=== PATIENT | male | born 1955 | race Caucasian/White ===

== ENCOUNTER 2017-01-19 08:25 | Emergency (ER) | payer OTHER, BC ==
[2017-01-19 08:34] VITALS: BP 124/80; PULSE 72; TEMP 98.3; BMI 31.6
[2017-01-19] MEDS ORDERED: TETANUS AND DIPHTHERIA TOXOID 0.5 ML DISP.SYRIN IM ONE (09:02)
[2017-01-19] MEDS ORDERED: CEPHALEXIN MONOHYDRATE 500 MG CAPSULE (UD) PO ONE (09:16)
--- NOTE | 2017-01-19 09:20 | PDOC ---
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 Patient is unsure whether or not he is up-to-date with tetanus will update today. Patient denies any numbness of right hand or fingers. Occurred: reports: yesterday (at 7 pm ) Severity: reports: mild Pain Location: reports: upper extremity (laceration base of 2nd metacarpal palmar) Method of Injury: Yes: other (cut by metal pipe at work ) Modifying Factors: improves with: None Loss of Consciousness: no loss of consciousness Associated Symptoms (Fall): denies symptoms Past History - Past Medical History Allergies/Adverse Reactions: Allergies Allergy/AdvReac Type Severity Reaction Status Date / Time No Known Allergies Allergy Verified 01/19/17 08:34 Home Medications: Ambulatory Orders Jentadueto 2.5 mg-500 mg Tab 500 tab PO BID 10/16/14 Candesartan Cilexetil [Atacand -] 0 mg PO DAILY 11/02/15 Glimepiride [Amaryl -] 0 mg PO DAILY 11/02/15 [place]-3 Acid Ethyl Esters [Lovaza -] 0 mg PO TID 11/02/15 Antipyrine-Benzocaine Ear Drop [Auralgan -] 5 drop AD TID #1 bottle 11/03/15 Cephalexin Monohydrate [Keflex -] 500 mg PO Q8H #20 capsule MDD 3 01/19/17 Diabetes: Yes (type 2) HTN: Yes Suicide Attempt (Hx): No - Immunization History Immunization Up to Date: Yes - Psycho/Social/Smoking Cessation Hx Anxiety: No Suicidal Ideation: No Smoking Status: Yes Smoking History: Current every day smoker Have you smoked in the past 12 months: No Number of Cigarettes Smoked Daily: 20 Information on smoking cessation initiated: No Hx Alcohol Use: No Drug/Substance Use Hx: No Substance Use Type: None Review of Systems - Review of Systems Able to Perform ROS?: Yes Constitutional: No: Symptoms Reported HEENTM: No: Symptoms Reported Respiratory: No: Symptoms reported Cardiac (ROS): No: Symptoms Reported ABD/GI: No: Symptoms Reported : No: Symptoms Reported Musculoskeletal: No: Symptoms Reported Integumentary: Yes: Other (laceration at base of trt. 2nd MCP jt palmar) Neurological: No: Symptoms reported *Physical Exam - Vital Signs Last Vital Signs Temp Pulse Resp BP Pulse Ox 98.3 F 72 18 124/80 98 01/19/17 08:27 01/19/17 08:27 01/19/17 08:27 01/19/17 08:27 01/19/17 08:27 - Physical Exam General Appearance: Yes: Appropriately Dressed Comments:: 01/19/17 09:17 radial pulse 4 + rt. Extremity: positive: Normal Capillary Refill, Normal Inspection (except for laceration at base of 2nd mcp jt palmar aspect rt), Normal Range of Motion (all digits rt. hand and 2nd finger rt. at pip, dip, mcp jt ) Integumentary: positive: Other (laceration rt. palmar 2nd base of 2nd mcp jt.approx 2 cm x 0.25 cm linear superficial ) Neurologic: positive: Normal Response, Motor Strength 5/5 (rt.index finger), Respond to painful stimul. negative: Numbness, Sensory Deficit (rt. index finger, rt. hand ) Procedures - Consent Consent obtained: From Patient - Laceration/Wound Repair Right Hand Wound Length: to 2.5 cm Wound Explored: clean Wound's Depth, Shape: superficial, linear Irrigated w/ Saline: Yes Betadine Prep: Yes Anesthesia: 1% Lidocaine Amount of Anesthetic (ccs): 2 Wound Repaired With: Sutures Suture Size/Type: 4:0 Number of Sutures: 2 (interrupted) Sterile Dressing Applied: No (bandaid ) Splint Applied: No Medical Decision Making - Medical Decision Making 01/19/17 12:07 Patient is a 61-year-old male with history of hypertension and insulin- dependent diabetic here today due to cutting his palm at the base of his second finger on a metal pipe last night approximately 7 PM 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 Patient is unsure whether or not he is up-to- date with tetanus will update today. Patient denies any numbness of right hand or fingers. Right hand laceration at base of rt. index finger palmar aspect PLAN: TDAP 0.5 ml IM keflex 500 mg po now than every 8 hrs for 7 days 2 interrupted sutures applied rt. palmar hand base of index *DC/Admit/Observation/Transfer Diagnosis at time of Disposition: Laceration of right palm Qualifiers: Encounter type: initial encounter Qualified Code(s): S61.411A - Laceration without foreign body of right hand, initial encounter - Discharge Dispostion Disposition: HOME Condition at time of disposition: Stable - Prescriptions Prescriptions: Cephalexin Monohydrate [Keflex -] 500 mg PO Q8H #20 capsule MDD 3 - Referrals Referrals: Janis Felix MD [Primary Care Provider] - - Patient Instructions Additional Instructions: Wound daily with antibacterial soap and water pat dry and apply a tiny amount of bacitracin ointment cover with Band-Aid when out of the home let air out at night Today your tetanus diphtheria and pertussis vaccine was updated Return here in 10-14 days for suture removal or sooner if any redness around wound or any discharge from wound Patient voiced understanding of discharge instructions and all questions were answered - Post Discharge Activity Work/School Note: Back to Work
[2017-01-19] MEDS ORDERED: CEPHALEXIN MONOHYDRATE 500 MG CAPSULE (UD) ONE (09:25)
== END 2017-01-19 09:27 | disposition home or self-care (01) ==
LOC: JERFT 08:25
PROC: 0HQFXZZ Repair Right Hand Skin, External Approach (ICD-10-PCS; principal; 2017-01-19)
DX: S61.411A Laceration without foreign body of right hand, initial encounter (principal); W26.8XXA Contact with other sharp object(s), not elsewhere classified, initial encounter; Y93.89 Activity, other specified; Y92.9 Unspecified place or not applicable; Y99.0 Civilian activity done for income or pay; F17.210 Nicotine dependence, cigarettes, uncomplicated; I10 Essential (primary) hypertension; E11.9 Type 2 diabetes mellitus without complications
CPT/HCPCS: 99281-25

== ENCOUNTER 2017-02-24 08:04 | Emergency (ER) | payer OTHER, BC ==
[2017-02-24 08:09] VITALS: BP 131/69; PULSE 67; TEMP 98.2; BMI 31.7
--- NOTE | 2017-02-24 08:56 | PDOC ---
History of Present Illness - General Chief Complaint: Redness To Affected Area Stated Complaint: RT FINGER INFECTION Time Seen by Provider: 02/24/17 08:25 History Source: Patient Exam Limitations: No Limitations - History of Present Illness Initial Comments: 02/24/17 08:32 concerned about 2nd finger right hand status post laceration repair approximately one month ago. States woke up yesterday and noticed some tenderness distal to the injury that is well-healed. States today had worsened redness and tenderness at the PIP of same affected hand. Denies fever, denies purulent drainage or any foreign bodies. States had uneventful healing of the wound. Has had no recent trauma to same. 02/24/17 09:04 Timing/Duration: unsure Past History - Travel Traveled outside of the country in the last 30 days: No Close contact w/someone who was outside of country & ill: No - Past Medical History Allergies/Adverse Reactions: Allergies Allergy/AdvReac Type Severity Reaction Status Date / Time No Known Allergies Allergy Verified 02/24/17 08:09 Home Medications: Ambulatory Orders Jentadueto 2.5 mg-500 mg Tab 500 tab PO BID 10/16/14 Candesartan Cilexetil [Atacand -] 0 mg PO DAILY 11/02/15 Glimepiride [Amaryl -] 0 mg PO DAILY 11/02/15 [place]-3 Acid Ethyl Esters [Lovaza -] 0 mg PO TID 11/02/15 Antipyrine-Benzocaine Ear Drop [Auralgan -] 5 drop AD TID #1 bottle 11/03/15 Cephalexin Monohydrate [Keflex -] 500 mg PO Q8H #20 capsule MDD 3 01/19/17 Cephalexin Monohydrate [Keflex -] 500 mg PO Q8H #21 capsule 02/24/17 Diabetes: Yes (type 2) HTN: Yes Suicide Attempt (Hx): No - Immunization History Immunization Up to Date: Yes - Psycho/Social/Smoking Cessation Hx Anxiety: No Suicidal Ideation: No Smoking Status: Yes Smoking History: Current every day smoker Have you smoked in the past 12 months: Yes Number of Cigarettes Smoked Daily: 20 Information on smoking cessation initiated: Yes 'Breaking Loose' booklet given: 02/24/17 Hx Alcohol Use: No Drug/Substance Use Hx: No Substance Use Type: None Review of Systems - Review of Systems Able to Perform ROS?: Yes Is the patient limited Vietnamese proficient: Yes Constitutional: Yes: See HPI. No: Symptoms Reported, Chills, Fever HEENTM: No: Symptoms Reported Respiratory: No: Symptoms reported Musculoskeletal: Yes: Symptoms Reported, See HPI, Joint Pain (right second finger) Integumentary: Yes: See HPI, Erythema, Lesions *Physical Exam - Vital Signs Last Vital Signs Temp Pulse Resp BP Pulse Ox 98.2 F 67 20 131/69 99 02/24/17 08:05 02/24/17 08:05 02/24/17 08:05 02/24/17 08:05 02/24/17 08:05 - Physical Exam General Appearance: Yes: Nourished, Appropriately Dressed, Apparent Distress, Mild Distress HEENT: positive: [place]AMP[place], Normal ENT Inspection, TMs Normal, Pharynx Normal Extremity: positive: Normal Capillary Refill, Normal Inspection. negative: Normal Range of Motion Integumentary: positive: Erythema, Swelling (and tenderness to the ulnar aspect of right index finger at PIP and extending into second phalanx. Range of motion is somewhat limited secondary to pain with extreme flexion and grasp/fist. Neurovascular intact distal to tender area. Well-healed scab scar at MCP webspace of second and third digits of right palm. 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 We'll treat with Keflex, and have follow up with hand specialist to rule out any foreign body or further infection related to wound this week. *DC/Admit/Observation/Transfer Diagnosis at time of Disposition: Cellulitis, finger Qualifiers: Laterality: right Qualified Code(s): L03.011 - Cellulitis of right finger - Discharge Dispostion Disposition: HOME Condition at time of disposition: Stable Admit: No - Referrals Referrals: Janis Felix MD [Primary Care Provider] - Jaxon Hernández MD [Staff Physician] - - Patient Instructions Printed Discharge Instructions: DI for Cellulitis -- Adult Additional Instructions: Rest, keep area elevated. Avoid strenuous activity or exercise until wound is healed Use hot soaks to area to bring more blood to the surface and encourage drainage Allow water from shower to wash area thoroughly for 2-3 minutes, and pat dry upon exit of shower and replace dressing. May use Tylenol or Motrin for mild pain relief Continue all medications as prescribed Followup with private physician in 2-3 days for wound check Return to emergency Department for worsening swelling, pain, redness, fevers as needed - Post Discharge Activity Work/School Note: Back to Work
[2017-02-24] MEDS ORDERED: CEPHALEXIN MONOHYDRATE 500 MG CAPSULE (UD) PO ONE (09:04)
[2017-02-24] MEDS ORDERED: CEPHALEXIN MONOHYDRATE 500 MG CAPSULE (UD) ONE (09:05)
== END 2017-02-24 09:15 | disposition home or self-care (01) ==
LOC: JERFT 08:04
DX: L03.011 Cellulitis of right finger (principal); I10 Essential (primary) hypertension; E11.9 Type 2 diabetes mellitus without complications; Z79.84 Long term (current) use of oral hypoglycemic drugs; F17.210 Nicotine dependence, cigarettes, uncomplicated
CPT/HCPCS: 99281-25

== ENCOUNTER 2017-12-27 07:49 | Emergency (ER) | payer OTHER, BC ==
[2017-12-27 08:11] VITALS: BP 142/83; PULSE 66; TEMP 98.8; BMI 31.9
[2017-12-27] MEDS ORDERED: CLINDAMYCIN 900 MG PREMIX IVPB 900 MG/50 ML BAG IVPB ONE ×2 (09:24→09:38)
--- NOTE | 2017-12-27 09:31 | PDOC ---
History of Present Illness - General Chief Complaint: Abscess Boil Stated Complaint: INJURY TO FINGER Time Seen by Provider: 12/27/17 08:46 History Source: Patient Exam Limitations: No Limitations - History of Present Illness Initial Comments: 12/27/17 09:31 62-year-old male who is right hand dominant presents to the ER complaining of pain and swelling to the base of the right index finger. 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 Patient noticed some swelling and redness to the medial base of the proximal phalanx of the second digit last evening area patient denies fever, chills, extremity numbness or tingling sensation. Patient denies any drainage but states there is some pain to that area. Last tetanus approximately one year ago. Past History - Past Medical History Allergies/Adverse Reactions: Allergies Allergy/AdvReac Type Severity Reaction Status Date / Time No Known Allergies Allergy Verified 12/27/17 08:08 Home Medications: Ambulatory Orders Jentadueto 2.5 mg-500 mg Tab 500 tab PO BID 10/16/14 Candesartan Cilexetil [Atacand -] 0 mg PO DAILY 11/02/15 Glimepiride [Amaryl -] 0 mg PO DAILY 11/02/15 [place]-3 Acid Ethyl Esters [Lovaza -] 0 mg PO TID 11/02/15 Cephalexin Monohydrate [Keflex -] 500 mg PO BID #14 capsule 12/27/17 COPD: No Diabetes: Yes (type 2) HTN: Yes - Immunization History Immunization Up to Date: Yes - Suicide/Smoking/Psychosocial Hx Smoking Status: Yes Smoking History: Current every day smoker Have you smoked in the past 12 months: Yes Number of Cigarettes Smoked Daily: 20 Information on smoking cessation initiated: No 'Breaking Loose' booklet given: 02/24/17 Hx Alcohol Use: No Drug/Substance Use Hx: No Substance Use Type: None Review of Systems - Review of Systems Able to Perform ROS?: Yes Comments:: 12/27/17 14:44 CONSTITUTIONAL: Absent: fever, chills, diaphoresis, generalized weakness, malaise, loss of appetite MUSCULOSKELETAL: right 2nd digit: +metallic foreign body to the medial aspect of the right second proximal phalanx with swelling and redness Absent: myalgia, arthralgia, joint swelling SKIN: Absent: rash, itching, pallor Is the patient limited Faroese proficient: No *Physical Exam - Vital Signs Last Vital Signs Temp Pulse Resp BP Pulse Ox 98.8 F 66 17 142/83 95 12/27/17 08:08 12/27/17 08:08 12/27/17 08:08 12/27/17 08:08 12/27/17 08:08 - Physical Exam Comments: 12/27/17 14:45 GENERAL: Well developed, well nourished. Awake and alert. No acute distress. MUSCULOSKELETAL ++metallic foreign body to the medial aspect of the right second proximal phalanx with swelling and redness Normal range of motion at all joints. No bony deformities or tenderness. No CVA tenderness. EXTREMITIES: No cyanosis. No clubbing. No edema. No calf tenderness. SKIN: Warm and dry. Normal capillary refill. No rashes. No jaundice. Moderate Sedation - Procedure Monitoring Vital Signs: Vital Signs Temp Pulse Resp BP Pulse Ox 98.8 F 66 17 142/83 95 12/27/17 08:08 12/27/17 08:08 12/27/17 08:08 12/27/17 08:08 12/27/17 08:08 ED Treatment Course - RADIOLOGY Radiology Studies Ordered: Category Date Time Status FINGER(S) RIGHT [RAD] Stat Radiology 12/27/17 09:11 Completed Radiograph Interpretation: 12/27/17 14:46 Xray right 2nd digit FB (2) noted to the base of the 2nd digit Xray post removal of FB by Ben KITCHEN (1) retained FB to volar prox 2nd phalanx *DC/Admit/Observation/Transfer Diagnosis at time of Disposition: Removal of foreign body - Discharge Dispostion Disposition: HOME Condition at time of disposition: Stable - Prescriptions Prescriptions: Cephalexin Monohydrate [Keflex -] 500 mg PO BID #14 capsule - Referrals Referrals: Anson Fleming MD [Staff Physician] - Janis Felix MD [Primary Care Provider] - - Patient Instructions - Post Discharge Activity Progress Note - Progress Note Progress Note: 1009hrs: Ben KITCHEN from Dr. Fleming's office at bedside seeing pt 1042hrs: As per Ben Young; pt can be d/c on Kelfex (superficial FB removed)
--- NOTE | 2017-12-27 11:45 | CON.ORTH ---
Consult Reason for Consultation:: right index FB - Past Medical History Cardio/Vascular: Yes: HTN, Hyperlipdemia. No: AFIB, Aneurysm, Aortic Insufficiency, Aortic Stenosis, CAD, CHF, Deep Vein Thrombosis, NE, Mitral Insufficiency, Mitral Stenosis, Murmur, Pulmonary Hypertension, Other Endocrine: Yes: Diabetes Mellitus. No: Lookout's Disease, Darrell's Disease, Diabetes Insipidus, Hyperparathyroidism, Hyperthyroidism, Hypothyroidism, Osteopenia, SIADH, Other - Alcohol/Substance Use Hx Alcohol Use: No - Smoking History Smoking history: Current every day smoker Have you smoked in the past 12 months: Yes Aproximately how many cigarettes per day: 20 Home Medications - Allergies Allergies/Adverse Reactions: Allergies Allergy/AdvReac Type Severity Reaction Status Date / Time No Known Allergies Allergy Verified 12/27/17 08:08 - Home Medications Home Medications: Ambulatory Orders Jentadueto 2.5 mg-500 mg Tab 500 tab PO BID 10/16/14 Candesartan Cilexetil [Atacand -] 0 mg PO DAILY 11/02/15 Glimepiride [Amaryl -] 0 mg PO DAILY 11/02/15 [place]-3 Acid Ethyl Esters [Lovaza -] 0 mg PO TID 11/02/15 Cephalexin Monohydrate [Keflex -] 500 mg PO BID #14 capsule 12/27/17 Physical Exam for Ortho Vital Signs: Vital Signs Temperature 98.8 F 12/27/17 08:08 Pulse Rate 66 12/27/17 08:08 Respiratory Rate 17 12/27/17 08:08 Blood Pressure 142/83 12/27/17 08:08 O2 Sat by Pulse Oximetry (%) 95 12/27/17 08:08 - Upper Extremity Hand: Yes: Right, Assymetrical, Erythema, Pain, Swelling, Tenderness, Other ( small ulceration/FB on ulnas aspect of right index finger, some erythema, no drainage or pus, able to flex and extend MP and PIP joints, nvi) Imaging - Results X-ray: Report Reviewed, Image Reviewed Assessment/Plan 62 yo left-hand dominant male with PMHx of HTN and DM. Pt is a smoker. H/o inury to finger one year ago where he suffered a laceration while at work to his right index finger. Recently finger has become more swollen and red and presents to ED for evaluation. a/p right index foreign body After consent obtained, time-out performed, area was prepped in a sterile fashion, bedside I&D was done, superficial piece of metal was removed for wound , area was irrigated with betadine, and bandaid was applied. Procedure was tolerated well Pt to be d/c'd on Keflex 500 mg BID for 7 days Clean area with peroxide daily Keep area covered will f/u in the office later this week for wound check d/w Dr. Hernández
== END 2017-12-27 11:07 | disposition home or self-care (01) ==
LOC: JERFT 07:49
PROC: 0JCJ0ZZ Extirpation of Matter from Right Hand Subcutaneous Tissue and Fascia, Open Approach (ICD-10-PCS; principal; 2017-12-27)
DX: Z18.10 Retained metal fragments, unspecified (principal); S60.450A Superficial foreign body of right index finger, initial encounter; X58.XXXA Exposure to other specified factors, initial encounter; Y93.89 Activity, other specified; Y92.69 Other specified industrial and construction area as the place of occurrence of the external cause; Y99.0 Civilian activity done for income or pay
CPT/HCPCS: 73140-TC-RT-FY; 99283-25

== ENCOUNTER 2018-04-19 08:09 | Emergency (ER) | payer OTHER, BC ==
[2018-04-19 08:37] VITALS: BP 156/77; PULSE 62; TEMP 98.7; BMI 31.7
--- NOTE | 2018-04-19 08:52 | PDOC ---
History of Present Illness - General Chief Complaint: Eye Problem Stated Complaint: RT EYE SWELLING, DRAINAGE Time Seen by Provider: 04/19/18 08:17 - History of Present Illness Initial Comments: 04/19/18 08:39 62 years old hx of HTN, DM, p/w 1 week hx of eyelid swelling. Patient presents with 6 day history of progressively worsening lower eyelid swelling now extending to the cheekbone. No fever no chills patient has history of similar has tried warm compresses at home with no improvement of symptoms. Symptoms are persistent constant gradually worsening moderate in severity there is no pain with eye movement and no pain within the eye. Past History - Past Medical History Allergies/Adverse Reactions: Allergies Allergy/AdvReac Type Severity Reaction Status Date / Time No Known Allergies Allergy Verified 04/19/18 08:10 Home Medications: Ambulatory Orders Candesartan Cilexetil [Atacand -] 32 mg PO DAILY 11/02/15 Glimepiride [Amaryl -] 4 mg PO DAILY 11/02/15 [place]-3 Acid Ethyl Esters [Lovaza -] 1 tab PO TID 11/02/15 Clindamycin [Cleocin -] 300 mg PO TID #21 capsule 04/19/18 Insulin Pen 16 units SQ BID 04/19/18 Polymyxin B Sulf/Trimethoprim [Polymyxin B-Tmp Eye Drops] 10 ml OP QID #1 bottle 04/19/18 COPD: No Diabetes: Yes (type 2) HTN: Yes - Immunization History Immunization Up to Date: Yes - Suicide/Smoking/Psychosocial Hx Smoking Status: Yes Smoking History: Current every day smoker Have you smoked in the past 12 months: Yes Number of Cigarettes Smoked Daily: 20 Information on smoking cessation initiated: Yes 'Breaking Loose' booklet given: 02/24/17 Hx Alcohol Use: No Drug/Substance Use Hx: No Substance Use Type: None Review of Systems - Review of Systems Comments:: 04/19/18 08:57 ROS: A complete review of 10 out of 10 review of systems is taken and is negative apart from what is previously mentioned below and in the HPI. *Physical Exam - Vital Signs Last Vital Signs Temp Pulse Resp BP Pulse Ox 98.7 F 62 20 156/77 99 04/19/18 08:10 04/19/18 08:10 04/19/18 08:10 04/19/18 08:10 04/19/18 08:10 - Physical Exam Comments: 04/19/18 08:58 Vitals: Triage Vital signs reviewed General Appearance: no acute distress, well nourished well developed, Head: Atraumatic, Eyes: Pupils equal reactive round, extraocular movement intact, no pain with extraocular movements, tenderness palpation to the lower right eyelid. VA: OD : 20/40, OS: 20/25 Neck: Supple;No Nucal rigidity Cardiac: Regular rate and rhythym, no murmurs, no rubs, no gallops, Lungs: Clear to auscultation bilateral, good air movement bilaterally, Extremities: Full range of motion to all extremities, no cyanosis, clubbing, or edema Skin: Swelling and redness to right lower eyelid extending from the nasal lacrimal area laterally to cheekbone Psych: normal mood, normal affect 04/19/18 09:00 Medical Decision Making - Medical Decision Making 04/19/18 09:00 History examination consistent with likely stye that has progressed to a blepharitis versus mild preseptal cellulitis. No pain with extraocular movements. Given this presentation we'll start patient on clindamycin given that he is diabetic by mouth as well as Polytrim eyedrops Patient provided with ophthalmology follow-up as well as very strict orbital cellulitis return instructions. Findings, the need for follow-up, strict return instructions discussed patient. *DC/Admit/Observation/Transfer Diagnosis at time of Disposition: Preseptal cellulitis - Discharge Dispostion Decision to Admit order: No - Prescriptions Prescriptions: Clindamycin [Cleocin -] 300 mg PO TID #21 capsule Polymyxin B Sulf/Trimethoprim [Polymyxin B-Tmp Eye Drops] 10 ml OP QID #1 bottle - Referrals Referrals: Himanshu Gross MD [Non Staff, Medical] - - Patient Instructions Printed Discharge Instructions: Orbital Cellulitis Additional Instructions: Take antibiotic drops as prescribed. Take antibody pills as prescribed. Apply warm compresses to lower eyelid 20 minutes on 20 minutes off. Follow-up with Dr. Gross ophthalmology within 2-3 days. Return to the emergency department immediately for any severe headache change in vision pain with eye movement fevers or for any concerns. Follow-up with your primary care provider within 1 week. - Post Discharge Activity
== END 2018-04-19 09:09 | disposition home or self-care (01) ==
LOC: FER 08:09
DX: L03.213 Periorbital cellulitis (principal); F17.210 Nicotine dependence, cigarettes, uncomplicated; I10 Essential (primary) hypertension; E11.9 Type 2 diabetes mellitus without complications
CPT/HCPCS: 99282-25

== ENCOUNTER 2018-07-27 09:04 | Emergency (ER) | payer OTHER, BC ==
--- NOTE | 2018-07-27 09:17 | PDOC ---
History of Present Illness - General Chief Complaint: Injury Stated Complaint: RT ANKLE INJURY Time Seen by Provider: 07/27/18 09:17 - History of Present Illness Initial Comments: 07/27/18 09:17 Chief complaint: Pain and swelling right ankle History of present illness: "Twisted it" yesterday at work. Progressive swelling. Ambulatory but limping, pain with weightbearing and movement. Multiple ankle sprains in the past, no fractures known. Review of systems: Did not fall. Denies any other injuries including pain or injury to the head neck chest abdomen spine pelvis or other extremities. Denies distal numbness tingling or weakness of the foot or toes. Denies proximal pain or swelling in the calf, knee, thigh, or hip Past medical history: Reviewed and noncontributory Social/family history reviewed and noncontributory Physical exam: Alert and oriented well-developed well-nourished no acute distress cheerful and cooperative Afebrile, vital signs normal Right lower extremity: Tenderness and swelling confined to the right ankle and fifth metatarsal base. No deformity. No instability. Pulses full. No sensory or motor deficits. Impression: Sprain, rule out fracture distal fibula, fifth metatarsal Plan: X-ray and further orthopedic management depending on results. Past History - Past Medical History Allergies/Adverse Reactions: Allergies Allergy/AdvReac Type Severity Reaction Status Date / Time No Known Allergies Allergy Verified 07/27/18 09:05 Home Medications: Ambulatory Orders Candesartan Cilexetil [Atacand -] 32 mg PO DAILY 11/02/15 Glimepiride [Amaryl -] 4 mg PO DAILY 11/02/15 Insulin Pen 16 units SQ BID 04/19/18 COPD: No Diabetes: Yes (type 2) HTN: Yes - Immunization History Immunization Up to Date: Yes - Suicide/Smoking/Psychosocial Hx Smoking Status: Yes Smoking History: Current every day smoker Have you smoked in the past 12 months: Yes Number of Cigarettes Smoked Daily: 20 'Breaking Loose' booklet given: 04/19/18 Hx Alcohol Use: No Drug/Substance Use Hx: No Substance Use Type: None Medical Decision Making - Medical Decision Making 07/27/18 09:25 X-ray: Negative Ankle stirrup support, rest, ice, elevation. Motrin for pain and swelling as needed. Recheck orthopedist if pain and swelling persists one-week. Adequately ambulatory and in no significant pain at discharge to follow-up as directed *DC/Admit/Observation/Transfer Diagnosis at time of Disposition: Ankle sprain Qualifiers: Encounter type: initial encounter Involved ligament of ankle: tibiofibular ligament Laterality: right Qualified Code(s): S93.431A - Sprain of tibiofibular ligament of right ankle, initial encounter - Discharge Dispostion Disposition: HOME Condition at time of disposition: Stable Decision to Admit order: No - Referrals Referrals: Junito Denney MD [Staff Physician] - 1 week - Patient Instructions Printed Discharge Instructions: DI for Ankle Sprain - Post Discharge Activity Forms/Work/School Notes: Back to Work
[2018-07-27 09:18] VITALS: BP 140/85; PULSE 74; TEMP 98.2; BMI 31.0
== END 2018-07-27 10:10 | disposition home or self-care (01) ==
LOC: FER 09:04
DX: S93.431A Sprain of tibiofibular ligament of right ankle, initial encounter (principal); X58.XXXA Exposure to other specified factors, initial encounter; Y93.89 Activity, other specified; Y92.89 Other specified places as the place of occurrence of the external cause; F17.210 Nicotine dependence, cigarettes, uncomplicated; I10 Essential (primary) hypertension; E11.9 Type 2 diabetes mellitus without complications
CPT/HCPCS: 73610-TC-RT-FY; 73630-TC-RT-FY; 99281-25

== ENCOUNTER 2020-03-18 08:32 | Emergency (ER) | payer BC, OTHER ==
--- NOTE | 2020-03-18 09:01 | PDOC ---
Attending Attestation - Resident Resident Name: Michael Fair - ED Attending Attestation I have performed the following: I have examined & evaluated the patient, The case was reviewed & discussed with the resident, I agree w/resident's findings & plan, Exceptions are as noted - HPI HPI: 64 yo M history DM, HTN presents with L groin abscess. He states he had prior similar symptoms, was treated by Dr. Gilbert, who drained the infection for him. Now with L groin pain, redness, very swollen raised area. Denies fever. - Physicial Exam PE: GENERAL: Awake, alert, and fully oriented, in no acute distress HEAD: No signs of trauma : +Small raised erythematous, indurated, fluctuant lesion to the L groin, extending into the scrotum. No scrotal tenderness EXTREMITIES: Normal range of motion, no edema. No clubbing or cyanosis. No cords, erythema, or tenderness NEUROLOGICAL: Cranial nerves II through XII grossly intact. Normal speech, normal gait. Motor and sensation intact SKIN: Warm, dry, normal turgor, no rashes or lesions noted. - Medical Decision Making 03/18/20 09:10 Pt with scrotal abscess. It appears to be superficial, however, given the location, this would be best managed by a urologist. Will d/w Dr. Robles, ring conductor for urology, as Dr. Gilbert has . Discharge - Discharge Information Problems reviewed: Yes Clinical Impression/Diagnosis: Scrotal abscess Condition: Stable Disposition: HOME - Follow up/Referral - Patient Discharge Instructions - Post Discharge Activity
[2020-03-18 09:07] VITALS: BP 137/88; PULSE 82; TEMP 98.3; BMI 31.0
--- NOTE | 2020-03-18 09:18 | PDOC ---
History of Present Illness - General Chief Complaint: Wound Stated Complaint: REDNESS TO AREA Time Seen by Provider: 03/18/20 08:35 History Source: Patient Exam Limitations: No Limitations - History of Present Illness Initial Comments: 64 y/o diabetic male with h/o recurrent scrotal abscess presenting to [facility] complaining of suspected abscess to the left lateral aspect of his scrotum. Developed on Wednesday. Painful to the touch. Denies drainage, bleeding, rapid spread, fevers, or chills. Previous episodes managed by urologist Dr. Gilbert who is . Past History - Medical History Allergies/Adverse Reactions: Allergies Allergy/AdvReac Type Severity Reaction Status Date / Time No Known Allergies Allergy Verified 03/18/20 08:33 Home Medications: Ambulatory Orders Candesartan Cilexetil [Atacand -] 32 mg PO DAILY 11/02/15 Glimepiride [Amaryl -] 4 mg PO DAILY 11/02/15 Insulin Pen 16 units SQ BID 04/19/18 COPD: No Diabetes: Yes (T2DM) Disorders: Yes (Recurrent scrotal abscess) HTN: Yes - Immunization History Immunization Up to Date: Yes - Psycho-Social/Smoking History Smoking Status: Yes Smoking History: Never smoked Have you smoked in the past 12 months: No Number of Cigarettes Smoked Daily: 20 Information on smoking cessation initiated: No 'Breaking Loose' booklet given: 07/27/18 - Substance Abuse Hx (Audit-C & DAST Scrn) How often the patient has a drink containing alcohol: Never Score: In Men: 4 or > Positive; In Women: 3 or > Positive: 0 Screen Result (Pos requires Nsg. Audit-10AR): Negative In the last yr the pt used illegal drug/Rx for NonMed reason: No Score: Yes response is considered Positive: 0 Screen Result (Positive result requires Nsg. DAST-10): Negative Review of Systems - Review of Systems Able to Perform ROS?: Yes Comments:: 10 point review of systems completed. All systems negative except as noted above. *Physical Exam - Vital Signs Last Vital Signs Temp Pulse Resp BP Pulse Ox 98.3 F 82 20 137/88 99 03/18/20 08:33 03/18/20 08:33 03/18/20 08:33 03/18/20 08:33 03/18/20 08:33 - Physical Exam General Appearance: Yes: Nourished, Appropriately Dressed. No: Apparent Distress HEENT: positive: Normal Voice Neck: positive: Supple Respiratory/Chest: positive: Other (Speaking in multiword responses without pausing.). negative: Respiratory Distress Cardiovascular: positive: Regular Rate Male Genitalia: positive: other (Male : Genital exam revealed normally developed male genitalia. Circumcised penis. Normal testicular lie. Approx. 2 cm x 1 cm area of fluctuance and overlying erythema to the left lateral aspect of the scrotum. No skin breakdown or drainage. No crepitus or perineal abnormalities are seen. No genital lesions or urethral discharge. ED Attending Dr. Vazquez chaperoned exam. ) Integumentary: positive: Dry, Warm Neurologic: positive: Fully Oriented, Alert, Normal Mood/Affect, Normal Response Medical Decision Making - Medical Decision Making 64 y/o male presenting with three days of suspected left sided scrotal abscess. Afebrile. Triage vitals unremarkable for hypotension or tachycardia. Normoxic on room air. Physical exam as described above. Low suspicion for Parag's without extension into the perineum, lack of crepitus, or rapid progression. Case discussed with Dr. Robles, urologist rehabilitation therapy aide for the department. Able to see pt in the clinic this morning. Pt stated he was able to go directly to the clinic. Provided with packing material as requested. Discussed the importance of having the area evaluated urgently with concern for development of more serious infection. Pt expressed verbal understanding and agreement with plan to discharge to clinic this morning. Case discussed with ED Attending Dr. George Fair M.D., PGY3 Emergency Medicine Resident Discharge - Discharge Information Problems reviewed: Yes Clinical Impression/Diagnosis: Scrotal abscess Condition: Good Disposition: HOME - Admission No - Follow up/Referral Referrals: Sanket Robles MD [Staff Physician] - - Patient Discharge Instructions Patient Printed Discharge Instructions: DI for Scrotal Abscess Additional Instructions: You were seen today for an abscess to the left testicule. This needs to be evaluated by a urologist. I called and spoke to Dr. Robels, the urologist rehabilitation therapy aide for the department. He is able to see you in his office this morning. He leaves at noon. Dr. Robles Clinic Information is included in this packet. Go straight to clinic. Dr. Robles also requested you bring the packing material I provided to you in the ED. Return to the ED for new or worsening symptoms. Be sure to have this evaluated today! It is in a sensitive area and could become a more serious infection very quickly! Print Language: SWEDISH - Post Discharge Activity
== END 2020-03-18 09:23 | disposition home or self-care (01) ==
LOC: FER 08:32
DX: N49.2 Inflammatory disorders of scrotum (principal)
CPT/HCPCS: 99282-25

== ENCOUNTER 2022-11-14 10:44 | Emergency (ER) | payer OTHER, BC ==
[2022-11-14 11:18] VITALS: BP 122/70; TEMP 97.8; BMI 29.5
[2022-11-14 11:34] VITALS: PULSE 68; RESP 16
[2022-11-14 11:58] LABS: INR 1.1 (0.83-1.09); PROTHROMBIN TIME (PATIENT) 12.7 SEC (9.7-13.0)
[2022-11-14 12:06] LABS: ALBUMIN 4.3 g/dl (3.4-5.0); BILIRUBIN,TOTAL 0.6 mg/dl (0.2-1); CREATININE 1.5 mg/dl (0.55-1.3); TOT PROT 7.1 g/dl (6.4-8.2)
[2022-11-14] MEDS ORDERED: SODIUM CHLORIDE 500 ML IV STA (12:11)
[2022-11-14 12:40] LABS: BASO % 0.8 % (0-2.0); EOS % 1.2 % (0-4.5); HEMATOCRIT 45.7 % (35.4-49); HEMOGLOBIN 15.6 GM/dL (11.7-16.9); LYMPH % 20.1 % (8-40); MCH 29.6 pg (25.7-33.7); MCHC 34.2 g/dl (32.0-35.9); MEAN CELL VOLUME 86.6 fl (80-96); MEAN PLT VOLUME 9.3 fl (7.5-11.1); MONO % 9.8 % (3.8-10.2); NEUT % 68.1 % (42.8-82.8); PLATELET COUNT 129 10^3/uL (134-434); RBC 5.28 M/mm3 (4.00-5.60); RDW 15.5 % (11.9-15.9); WHITE BLOOD COUNT 4.8 K/mm3 (4.0-10.0)
== END 2022-11-14 14:50 | disposition home or self-care (01) ==
LOC: FER 10:44
PROC: 3E0337Z Introduction of Electrolytic and Water Balance Substance into Peripheral Vein, Percutaneous Approach (ICD-10-PCS; principal; 2022-11-14)
DX: R55 Syncope and collapse (principal); R00.0 Tachycardia, unspecified; Z20.822 Contact with and (suspected) exposure to COVID-19
CPT/HCPCS: 0241U-QW; 36415; 71045-TC-FY; 80053; 84443; 84484; 85025; 85610; 86850; 86900; 86901; 93005; 99285-25